=== PATIENT | male | born 1960 | race African-American/Black ===

== ENCOUNTER 2019-04-07 06:05 | Day surgery (SDC) | payer BC ==
[2019-04-04 12:44] VITALS: BMI 27.3
[2019-04-07] MEDS ORDERED: BUPIVACAINE HCL/PF 0.5% (5MG/ML) 10 ML VIAL ONE (06:40)
[2019-04-07] MEDS ORDERED: MIDAZOLAM HCL 2 MG/2 ML SINGLE DOSE VIAL ONE ×2 (06:41)
--- NOTE | 2019-04-07 07:11 | HP ---
[facility] - Chief Complaint History of Present Illness: right leg pain - Past Medical History Allergies/Adverse Reactions: Allergies Allergy/AdvReac Type Severity Reaction Status Date / Time No Known Allergies Allergy Verified 04/07/19 06:22 - Current Medications Current Medications: Home Medications Medication Instructions Recorded NK [No Known Home Medication] 04/04/19 Satellite Physical Exam - Physical Examination Vital Signs: Vital Signs Period Temp Pulse Resp BP Sys/Lacy Pulse Ox Last 24 Hr 98.1 F-98.1 F 58-58 20-20 144-144/80-80 97 Extremities: Other (+ gap in right achilles, + Mills sign) [facility] Impression/Plan - Impression/Plan Impression: right achilles tendon rupture Operative Procedure: right achilles tendon rupture Date to be Performed: 04/07/19
[2019-04-07] MEDS ORDERED: PROPOFOL 20 ML ONE ×3 (07:17)
[2019-04-07] MEDS ORDERED: SUCCINYLCHOLINE CHLORIDE 200 MG/10 ML SYRINGE ONE (07:17)
[2019-04-07] MEDS ORDERED: ceFAZolin SODIUM 1 GM VIAL IVPB ONE (07:31)
--- NOTE | 2019-04-07 08:14 | OP ---
Operative Note - Note: Operative Date: 04/07/19 ([facility]) Pre-Operative Diagnosis: right achilles tendon rupture Operation: right achilles tendon repair Post-Operative Diagnosis: Same as Pre-op Surgeon: Danis Dyer Director Of Personnel: Aroldo Palmer Anesthesiologist/COORDINATOR [employer]: Abhishek Kaur Anesthesia: Spinal, Local Estimated Blood Loss (mls): 50 Operative Report Dictated: Yes
[2019-04-07] MEDS ORDERED: ONDANSETRON 4 MG/2 ML VIAL IVPUSH PRN (08:18)
[2019-04-07] MEDS ORDERED: oxyCODONE HCL 5 MG TABLET PO PRN ×2 (08:18)
[2019-04-07] MEDS ORDERED: LACTATED RINGERS SOLUTION 1,000 ML IV SCH (08:30)
--- NOTE | 2019-04-07 09:21 | OP ---
DATE OF OPERATION: 04/07/2019 PREOPERATIVE DIAGNOSIS: Right Achilles tendon rupture. POSTOPERATIVE DIAGNOSIS: Right Achilles tendon rupture. PROCEDURE: Right Achilles tendon repair. SURGICAL ATTENDING: Akosua Dyer MD ROVING FRAME TENDER: JUNG Lee ANESTHESIA: Spinal. CLOSURE: SutureTape suture for tendon, 2-0 Vicryl subcutaneous, jordy for skin. ESTIMATED BLOOD LOSS: Negligible. COMPLICATIONS: None. CONDITION: Recovery in stable condition. DESCRIPTION OF OPERATIVE PROCEDURE: Patient was taken to the operating room on April 07, 2019. Spinal anesthesia was administered by the anesthesiologist. IV Kefzol was administered prophylactically prior to the case. Patient was placed in the prone position with all prominences well padded. The right lower extremity was prepped and draped in the usual sterile fashion. A 6- to 8-cm curvilinear incision over the Achilles tendon was incised. Full-thickness dissection was carried down to the level of the tendon. The 2 stumps of the tendon were easily mobilized both proximally and distally. SutureTape suture was weaved up and down the sides of the tendon, two on the proximal and two on the distal end. A fasciotomy was performed at the anterior aspect of the tendons and blood supply for later repair. With the foot in equinus, the 2 ends were sutured one to another, achieving excellent end-to-end repair. The plantaris tendon was found to be intact and was weaved into the repair as well. Incision was irrigated copiously. The subcutaneous was closed with 2-0 Vicryl, and jordy were used for the skin. Sterile pressure dressing was applied, followed by an Equinus splint. Patient was awakened from anesthesia and transferred to recovery room in stable condition. No complications. ESTIMATED BLOOD LOSS: Negligible. COMPLICATIONS: None. AKOSUA DYER M.D. [id number]
[2019-04-07 10:26] VITALS: TEMP 97.6
[2019-04-07 17:21] VITALS: BP 130/80; PULSE 52
== END 2019-04-07 14:45 | disposition home or self-care (01) ==
LOC: JASU-SURG 06:05
PROVIDERS: ATTEND Orthopaedic Surgery
PROC: 0LQN0ZZ Repair Right Lower Leg Tendon, Open Approach (ICD-10-PCS; principal; 2019-04-07 07:30)
DX: S86.011A Strain of right Achilles tendon, initial encounter (principal); X58.XXXA Exposure to other specified factors, initial encounter; Y93.9 Activity, unspecified; Y92.9 Unspecified place or not applicable; Y99.9 Unspecified external cause status
CPT/HCPCS: 94760

== ENCOUNTER 2022-05-03 20:37 | Emergency (ER) | payer BC ==
[2022-05-03 20:52] VITALS: BP 127/90; PULSE 89; BMI 27.3
[2022-05-03] MEDS ORDERED: PIPERACILLIN/TAZOB 3.375 GM 3.375 GM in DEXTROSE 5%-WATER - 50 ML IVPB ONE (20:54)
[2022-05-03] MEDS ORDERED: PIPERACILLIN/TAZOBACTAM 3.375 GM VIAL IVPB ONE (20:56)
[2022-05-03] MEDS ORDERED: ACETAMINOPHEN 500 MG TABLET (FP) PO ONE (20:56)
[2022-05-03] MEDS ORDERED: ACETAMINOPHEN 500 MG TABLET (FP) ONE (21:19)
[2022-05-03 21:38] LABS: HEMATOCRIT 41.6 % (35.4-49); HEMOGLOBIN 14.8 G/dL (11.7-16.9); MCH 29.6 pg (25.7-33.7); MCHC 35.5 g/dl (32.0-35.9); MEAN CELL VOLUME 83.6 fl (80-96); MEAN PLT VOLUME 9.2 fl (7.5-11.1); PLATELET COUNT 141.7 10^3/uL (134-434); RBC 4.98 10^6/uL (4.00-5.60); RDW 15.2 % (11.9-15.9); WHITE BLOOD COUNT 5.6 10^3/uL (4.0-10.8)
[2022-05-03 21:46] LABS: ALBUMIN 3.7 g/dl (3.4-5.0); BILIRUBIN,TOTAL 1.5 mg/dl (0.2-1); CALCIUM 8.9 mg/dl (8.5-10); CREATININE 1.5 mg/dl (0.55-1.3); TOT PROT 7.3 g/dl (6.4-8.2)
[2022-05-03 22:01] VITALS: TEMP 99.5
[2022-05-03] MEDS ORDERED: ALPRAZolam 1 MG TABLET PO PRN (22:13)
[2022-05-03] MEDS ORDERED: ALPRAZolam 0.25 MG TABLET ONE (22:24)
== END 2022-05-03 22:25 | disposition home or self-care (01) ==
LOC: FER 20:37
DX: L03.818 Cellulitis of other sites (principal)
CPT/HCPCS: 36415; 80053; 85025; 87040; 99284-25